=== PATIENT | female | born 1955 | race Caucasian/White ===

== ENCOUNTER → 2016-05-31 | Outpatient (CLI) | payer OTHER ==
[~2016-05-31] MED LIST: ACCUFLORA; ACETAMINOPHEN PO; ACIDOPHILUS LAC1 CAP PO; ACIDOPHILUS1 CAP; ACTOS; AGGRENOX PO; ALLERGY10 M2 PO; ALLEVE; ALTACE PO; AMARYL PO; ASPIRIN; AVALIDE PO; AVANDARYL PO; BUDEPRION PO; CIPRO 0.3%; COREG PO; COREG6.25 MG PO; CRANBERRY AZO; EYE; FAMOTIDINE PO; FLUTICASONE 0.05%; HYDROCODONE-APA1 T42 PO; JANUMET; JANUMET PO; JANUVIA PO; K-DUR10 MEQ PO; KEFLEX500 M1 PO; KEFLEX500 MG PO; KLONOPIN0.5 MG PO; LASIX; LASIX PO; LOC PO; LYRICA PO; MACROBID100 M1 PO; MACROBID100 MG PO; METFORMIN PO; MEVACOR20 M1 PO; MICRO-K; MICRO-K PO; NORVASC PO; OMEPRAZOLE40 MG PO; PHENERGAN PO; PHENERGAN12.5 MG/SU RC; PRENATAL VITAMI1 TA3 PO; PRENATAL1 TA1 PO; PRILOSEC20 MG PO; PRILOSEC40 MG PO; PROBIOTIC ACIDOPHILU; PROTONIX PO; PROZAC PO; PROZAC40 MG PO; REGLAN PO; REQUIP1 MG; SULAR; TRICOR PO; VESICARE PO; VITAMIN D; VITAMIN D1000 UNI1 PO; WELLBUTRIN PO; ZESTRIL5 MG PO; ZOCOR PO; ZOFRAN ODT4 MG PO; ZOFRAN ODT4 MG SL; ZOFRANODT PO
--- NOTE | ~2016-05-31 | US37 ---
[facility] A Service of [facility] RADIOLOGY TEXT RESULTS PATIENT: ANA RUCKER LOCATION: SNIV : 51 UNIT #: [id number] AGE: [address]: Lyubov Sheets MD SEX: F ORDER DR: [id number] [address] [id number] [id number] O MR#: [id number] Acc #: [id number] NAME: ANA RUCKER : 1955 SEX: F STUDY DATE/TIME: 05/31/2016 13:53 UNIT: SNIV ROOM: STUDY DESCRIPTION: US Carotid W/Doppler Bilateral Attending Physician: Lyubov Sheets M.D. Referring Physician: Lyubov Sheets M.D. Ordering Physician: Lyubov Sheets M.D. Primary Care Physician: Lyubov Sheets M.D. MEDICAL IMAGING REPORT This report is preliminary unless electronic signature is present. EXAM Bilateral carotid duplex, 05/31/16 HISTORY Carotid atherosclerosis. FINDINGS Duplex imaging of the carotid arteries was performed. The right common, internal and external carotid arteries are patent with no significant plaque noted. Velocity in the right common carotid is 55, internal is 53, and external is 61 cm per second. The right ICA/CCA ratio is 0.9. On the left side, the common carotid artery is patent. Minimal plaque is seen in the left internal carotid artery proximally. Velocity in the left common carotid is 56, internal is 81 and external is 46 cm per second. Left ICA/CCA ratio is 1.4. Antegrade flow is seen in the right and left vertebral arteries. IMPRESSION No significant plaque or stenosis is seen in the right internal/external arteries. Minimal plaque is seen in the left internal carotid artery. No hemodynamically-significant stenosis is seen bilaterally. Antegrade flow is seen in the right and left vertebral arteries. Dictated by.Cam Ga M.D. THIS IS AN ELECTRONICALLY VERIFIED REPORT [facility] A Service of [facility] RADIOLOGY TEXT RESULTS PATIENT: ANA RUCKER LOCATION: SNIV : 53 UNIT #: [id number] AGE: [address]: Lyubov Sheets MD SEX: F ORDER DR: Darvin Ga M.D. at 06/03/2016 2:05 PM Rere TD: 05/31/2016 21:40 JOB #: [id number] MEDICAL IMAGING REPORT Page 1 of 1
== END | disposition home or self-care (01) ==
LOC: SNIV 13:21
DX: I65.29 Occlusion and stenosis of unspecified carotid artery (principal); I65.22 Occlusion and stenosis of left carotid artery
CPT/HCPCS: 93880